=== PATIENT | male | born 1945 | race Caucasian/White ===

== ENCOUNTER → 2018-11-06 | Outpatient (CLI) | payer OTHER | END | disposition home or self-care (01) | LOC: RAD 13:46 | PROVIDERS: ATTEND Family Medicine | DX: Z01.810 Encounter for preprocedural cardiovascular examination (principal); Z01.811 Encounter for preprocedural respiratory examination; M17.11 Unilateral primary osteoarthritis, right knee | CPT/HCPCS: 71046; 93005 ==

== ENCOUNTER → 2018-12-03 | Outpatient (CLI) | payer OTHER ==
[~2018-12-03] MED LIST: ALLO300T PO; AMOX-291 PO; FURO-93 PO; LISI40TA PO; METF1000 PO; METO-93 PO; NIAC500T35 PO
[2018-12-03 15:26] LABS: BASOPHILS # (AUTO) 0.05 x10^3/uL (0-0.1); BASOPHILS % (AUTO) 1 % (0-1); EOSINOPHILS # (AUTO) 0.06 x10^3/uL (0-0.4); EOSINOPHILS % (AUTO) 1 % (1-7); LYMPHOCYTES # (AUTO) 1.66 x10^3/uL (1-3.4); LYMPHOCYTES % (AUTO) 17 % (22-44); MD NO; MEAN CORPUSCULAR HGB CONC 33.7 g/dL (33.2-36.2); MEAN CORPUSCULAR VOLUME 95.1 fL (81-97); MEAN PLATELET VOLUME 7.9 fL (7.4-10.4); MONOCYTES # (AUTO) 0.84 x10^3/uL (0.2-0.8); MONOCYTES % (AUTO) 9 % (2-9); NEUTROPHILS % (AUTO) 73 % (42-75); PLATELET COUNT 196 x10^3/uL (130-400); RED BLOOD COUNT 5.41 x10^6/uL (4.38-5.82); RED CELL DISTRIBUTION WIDTH 14.9 % (9.4-14.8)
[2018-12-03 15:34] LABS: ALANINE AMINOTRANSFERASE 30 U/L (12-78); ALBUMIN 3.9 g/dL (3.4-5.0); ANION GAP 5 mmol/L (5-15); CALCIUM 10.3 mg/dL (8.5-10.1); CHLORIDE 109 mmol/L (98-107)
[2018-12-03 15:37] LABS: ALKALINE PHOSPHATASE 99 U/L (45-117); BILIRUBIN,TOTAL 0.4 mg/dL (0.2-1.0); CREATININE 1.14 mg/dL (0.7-1.3); TOTAL PROTEIN 7.4 g/dL (6.4-8.2)
== END | disposition home or self-care (01) ==
LOC: STAR 13:50
PROVIDERS: ATTEND Orthopaedic Surgery
DX: M17.11 Unilateral primary osteoarthritis, right knee (principal)
CPT/HCPCS: 36415; 80053; 85025; 87081

== ENCOUNTER 2018-12-09 07:55 | Inpatient (IN) | payer MEDICARE, OTHER ==
[~2018-12-09] VITALS: Ht 185.4 cm; Wt 125.8 kg
[~2018-12-09 07:55] MED LIST changes: +EPINEPHRINE 1 MG/ML, 1ML ONE; +KETOROLAC 60 MG/2 ML ONE; +ROPIvacaine/PF 0.2%, 20 ML ONE; +SODIUM CHLORIDE 0.9% 50 ML ONE; +TRANEXAMIC ACID 100 MG/ML, 10ML ONE
[2018-12-09] MEDS ORDERED: LACTATED RINGERS 1,000 ML IV SCH (08:30)
[2018-12-09] MEDS ORDERED: VANCOMYCIN 2,000 MG in SODIUM CHLORIDE 0.9% 500 ML IV ONE (09:00)
[2018-12-09] MEDS ORDERED: VANCOMYCIN PER PHARMACY MC PRN (09:00)
[2018-12-09 09:06] VITALS: BP 147/80
[2018-12-09] MEDS ORDERED: ACETAMINOPHEN 500 MG TABLET PO ONE (09:30)
[2018-12-09] MEDS ORDERED: SCOPOLAMINE PATCH, 1.5MG PATCH.TD72 TD ONE (09:30)
[2018-12-09] MEDS ORDERED: GABAPENTIN 300 MG CAPSULE PO ONE (09:30)
[2018-12-09] MEDS ORDERED: FENTANYL PF 250 MCG/5ML ONE (09:50)
[2018-12-09] MEDS ORDERED: MIDAZOLAM 1 MG/ML, 2ML ONE (09:50)
[2018-12-09] MEDS ORDERED: PROPOFOL 10 MG/ML, 20ML ONE (09:51)
[2018-12-09] MEDS ORDERED: LIDOCAINE-MPF 2% ,5ML ONE (09:51)
[2018-12-09] MEDS ORDERED: WATER-INJECTION,STERILE 10 ML IV ONE (09:52)
[2018-12-09] MEDS ORDERED: CEFAZOLIN 1,000 MG ONE ×2 (09:52)
[2018-12-09] MEDS ORDERED: BUPIVACAINE/PF 0.25% ONE (09:53)
[2018-12-09] MEDS ORDERED: VANCOMYCIN 1,000 MG ONE (11:00)
[2018-12-09] MEDS ORDERED: PROPOFOL 50 ML ONE (11:03)
[2018-12-09] MEDS ORDERED: ROCURONIUM 10MG/ML,5ML ONE (11:07)
[2018-12-09] MEDS ORDERED: KETAMINE 100 MG/ML, 5ML ONE (11:07)
[2018-12-09] MEDS ORDERED: DEXAMETHASONE 4 MG/ML, 1ML ONE (11:07)
[2018-12-09] MEDS ORDERED: HYDROmorphone 2 MG/ML, 1ML IVPush PRN (12:00)
[2018-12-09] MEDS ORDERED: MEPERIDINE/PF 25MG/0.5ML IVPush PRN (12:00)
[2018-12-09] MEDS ORDERED: PROMETHAZINE 25 MG/ML, 1ML IV PRN (12:00)
[2018-12-09] MEDS ORDERED: HALOPERIDOL 5 MG/ML IV PRN (12:00)
[2018-12-09] MEDS ORDERED: hydrALAzine 20 MG/ML, 1ML IV PRN (12:00)
[2018-12-09] MEDS ORDERED: PROMETHAZINE 12.5 MG SUPP PR PRN (13:00)
[2018-12-09] MEDS ORDERED: ONDANSETRON 2MG/ML, 2ML IV PRN (13:00)
[2018-12-09] MEDS ORDERED: PROMETHAZINE 25 MG/ML, 1ML IM PRN (13:00)
[2018-12-09] MEDS ORDERED: DIPHENHYDRAMINE 50 MG CAPSULE PO PRN (13:00)
[2018-12-09] MEDS ORDERED: SENNA/DOCUSATE TABLET PO PRN (13:00)
[2018-12-09] MEDS ORDERED: ONDANSETRON 4 MG TABLET PO PRN (13:00)
[2018-12-09] MEDS ORDERED: MAGNESIUM HYDROXIDE 8%, 30ML UDC PO PRN (13:00)
[2018-12-09] MEDS ORDERED: ZOLPIDEM 5MG TABLET PO PRN (13:00)
[2018-12-09] MEDS ORDERED: HYDROmorphone 1 MG/ML, 1ML AMP IV PRN (13:00)
[2018-12-09] MEDS ORDERED: BISACODYL 10 MG SUPP PR PRN (13:00)
[2018-12-09] MEDS ORDERED: ALUMINUM/MAG/SIMETHICONE 30 ML UDC PO PRN (13:00)
[2018-12-09] MEDS ORDERED: OXYcodone 5 MG/5 ML ORAL.SOL UDC ONE (13:05)
[2018-12-09] MEDS ORDERED: FENTANYL PF 100 MCG/2ML ONE (13:05)
[2018-12-09] MEDS: OXYcodone 5 MG/5 ML ORAL.SOL UDC PO PRN ×2 (13:11→15:36)
[2018-12-09] MEDS ORDERED: TRANEXAMIC ACID 1,000 MG in SODIUM CHLORIDE 0.9% 100 ML IVPB ONE (13:15)
[2018-12-09] MEDS ORDERED: hydrALAzine 20 MG/ML, 1ML ONE (13:16)
[2018-12-09] MEDS: FENTANYL PF 100 MCG/2ML IV PRN ×3 (13:31→14:03)
[2018-12-09] MEDS ORDERED: ONDANSETRON 2MG/ML, 2ML ONE (13:34)
[2018-12-09] MEDS ORDERED: GLYCOPYRROLATE 0.4 MG/2 ML, 2ML ONE (13:38)
[2018-12-09] MEDS ORDERED: VANCOMYCIN PMX 1GM/200ML 200 ML IVPB ONE (15:00)
[2018-12-09] MEDS: SODIUM CHLORIDE 0.9% 1,000 ML IV SCH (15:35)
[2018-12-09] MEDS: ACETAMINOPHEN 650 MG/20.3 ML UDC PO SCH ×2 (15:35→19:40)
[2018-12-09] MEDS: TAMSULOSIN 0.4 MG CAP.ER.24H PO SCH (15:36)
[2018-12-09 18:30] VITALS: BP 119/61
[2018-12-09] MEDS: metFORMIN 500 MG TABLET PO SCH (19:41)
[2018-12-09] MEDS: DOCUSATE 100 MG CAPSULE PO SCH (19:42)
[2018-12-09] MEDS: LISINOPRIL 20 MG TABLET PO SCH (19:42)
[2018-12-09] MEDS: CEFAZOLIN PMX 2GM/50ML 50 ML IVPB SCH (19:43)
[2018-12-09] MEDS: DIAZEPAM 5 MG TABLET PO PRN (20:14)
[2018-12-09] MEDS ORDERED: METOPROLOL SUCCINATE 50 MG TAB.ER.24H PO SCH (21:00)
[2018-12-10 00:46] VITALS: BP 142/72
[2018-12-10] MEDS: DIAZEPAM 5 MG TABLET PO PRN ×3 (00:52→16:54)
[2018-12-10] MEDS: SODIUM CHLORIDE 0.9% 1,000 ML IV SCH ×2 (01:00→09:00)
[2018-12-10] MEDS: ACETAMINOPHEN 650 MG/20.3 ML UDC PO SCH ×3 (01:31→14:20)
[2018-12-10] MEDS: CEFAZOLIN PMX 2GM/50ML 50 ML IVPB SCH (02:37)
[2018-12-10 04:30] VITALS: BP 144/73
[2018-12-10] MEDS ORDERED: DEXAMETHASONE 4 MG/ML, 1ML IVPush SCH (06:00)
[2018-12-10] MEDS: RIVAROXABAN 10 MG TABLET PO SCH ×2 (06:34→09:00)
[2018-12-10 07:33] VITALS: BP 148/72
[2018-12-10] MEDS: metFORMIN 500 MG TABLET PO SCH (08:46)
[2018-12-10] MEDS: DOCUSATE 100 MG CAPSULE PO SCH (08:46)
[2018-12-10] MEDS: LISINOPRIL 20 MG TABLET PO SCH (08:48)
[2018-12-10] MEDS: TAMSULOSIN 0.4 MG CAP.ER.24H PO SCH (08:58)
[2018-12-10] MEDS ORDERED: NIACINAMIDE PO SCH (09:00)
[2018-12-10] MEDS ORDERED: ALLOPURINOL 300 MG TABLET PO SCH (09:00)
[2018-12-10] MEDS ORDERED: LISINOPRIL 20 MG TABLET PO SCH ×2 (09:00→21:00)
[2018-12-10] MEDS ORDERED: FUROSEMIDE 20 MG TABLET PO SCH (09:00)
[2018-12-10] MEDS ORDERED: MULTIVITAMINS/MINERALS TABLET PO SCH (09:00)
[2018-12-10] MEDS ORDERED: METOPROLOL SUCCINATE 50 MG TAB.ER.24H PO SCH (09:00)
[2018-12-10] MEDS ORDERED: AMOXICILLIN 500 MG CAPSULE PO SCH (09:30)
[2018-12-10] MEDS: OXYcodone IR 5MG TABLET PO PRN ×2 (10:48→16:54)
[2018-12-10 13:04] VITALS: BP 119/66
[2018-12-10] MEDS ORDERED: KETOROLAC 30 MG/1 ML IV SCH (15:00)
[2018-12-10] MEDS ORDERED: DIAZ5TAB PO (17:30)
[2018-12-10] MEDS ORDERED: OXYC5TAB3 PO (17:31)
== END 2018-12-10 19:17 | disposition home or self-care (01) | DRG 470 ==
LOC: OUT 07:55 → ORIP 12:54 → 4NOR 14:29
PROVIDERS: ADMIT Orthopaedic Surgery; ATTEND Orthopaedic Surgery
PROC: 3E0T3BZ Introduction of Anesthetic Agent into Peripheral Nerves and Plexi, Percutaneous Approach (ICD-10-PCS; 2018-12-09)
PROC: 0SRC0J9 Replacement of Right Knee Joint with Synthetic Substitute, Cemented, Open Approach (ICD-10-PCS; principal; 2018-12-09 11:00)
DX: M17.11 Unilateral primary osteoarthritis, right knee (principal); E11.9 Type 2 diabetes mellitus without complications; M21.161 Varus deformity, not elsewhere classified, right knee; M25.761 Osteophyte, right knee; Z86.73 Personal history of transient ischemic attack (TIA), and cerebral infarction without residual deficits; Z91.81 History of falling; Z79.84 Long term (current) use of oral hypoglycemic drugs
CPT/HCPCS: 36415; 82962; 85014; 85018; C1713; G0378; J0171; J0690; J1100; J1885; J2250; J2704; J2795; J3010; J3370; J3490; C1776; J0360; J7030; J7040; J7120

== ENCOUNTER 2019-02-26 07:38 | Outpatient (CLI) | payer MEDICARE, OTHER ==
[~2019-02-26 07:38] MED LIST changes: +DIAZ5TAB PO; -EPINEPHRINE 1 MG/ML, 1ML ONE; -KETOROLAC 60 MG/2 ML ONE; +OXYC5TAB3 PO; -ROPIvacaine/PF 0.2%, 20 ML ONE; -SODIUM CHLORIDE 0.9% 50 ML ONE; -TRANEXAMIC ACID 100 MG/ML, 10ML ONE
== END 2019-02-26 23:59 | disposition home or self-care (01) ==
LOC: CFH 07:38
PROVIDERS: ATTEND Internal Medicine Nephrology
DX: I12.9 Hypertensive chronic kidney disease with stage 1 through stage 4 chronic kidney disease, or unspecified chronic kidney disease (principal); N18.2 Chronic kidney disease, stage 2 (mild); E78.5 Hyperlipidemia, unspecified; E83.52 Hypercalcemia; R73.01 Impaired fasting glucose; R80.9 Proteinuria, unspecified
CPT/HCPCS: 76770; 78070; A9500

== ENCOUNTER → 2019-11-12 | Outpatient (CLI) | payer OTHER ==
[~2019-11-12] MED LIST changes: +AMLO10TA8 PO; +ERGO500017 PO; +METF500T17 PO; +MULT1TAB60 PO
[2019-11-12 14:13] LABS: MICROSCOPIC NOT IND
[2019-11-12 14:15] LABS: BASOPHILS # (AUTO) 0.03 x10^3/uL (0-0.1); BASOPHILS % (AUTO) 0 % (0-1); EOSINOPHILS # (AUTO) 0.25 x10^3/uL (0-0.4); EOSINOPHILS % (AUTO) 3 % (1-7); LYMPHOCYTES # (AUTO) 1.84 x10^3/uL (1-3.4); LYMPHOCYTES % (AUTO) 23 % (22-44); MD NO; MEAN CORPUSCULAR HEMOGLOBIN 31.5 pg (27.5-34.5); MEAN CORPUSCULAR HGB CONC 33.4 g/dL (33.2-36.2); MEAN CORPUSCULAR VOLUME 94.4 fL (81-97); MEAN PLATELET VOLUME 8.2 fL (7.4-10.4); MONOCYTES # (AUTO) 0.83 x10^3/uL (0.2-0.8); MONOCYTES % (AUTO) 10 % (2-9); NEUTROPHILS # (AUTO) 5.07 x10^3/uL (1.8-6.8); NEUTROPHILS % (AUTO) 63 % (42-75); PLATELET COUNT 201 x10^3/uL (130-400); RED BLOOD COUNT 5.28 x10^6/uL (4.38-5.82); RED CELL DISTRIBUTION WIDTH 14.5 % (9.4-14.8)
[2019-11-12 14:18] LABS: CULTURE INDICATED? NO
[2019-11-12 14:21] LABS: INTERNATIONAL NORMALIZED RATIO 0.94 (0.93-1.1)
[2019-11-12 14:22] LABS: CHLORIDE 108 mmol/L (98-107)
[2019-11-12 14:32] LABS: ALANINE AMINOTRANSFERASE 31 U/L (12-78); ALBUMIN 4.1 g/dL (3.4-5.0); ALKALINE PHOSPHATASE 120 U/L (45-117); ANION GAP 7 mmol/L (5-15); BILIRUBIN,TOTAL 0.5 mg/dL (0.2-1.0); CALCIUM 10.6 mg/dL (8.5-10.1); CREATININE 1.05 mg/dL (0.7-1.3); TOTAL PROTEIN 7.5 g/dL (6.4-8.2)
== END | disposition home or self-care (01) ==
LOC: STAR 13:17
PROVIDERS: ATTEND Neurological Surgery
DX: Z01.818 Encounter for other preprocedural examination (principal); G56.01 Carpal tunnel syndrome, right upper limb; M47.12 Other spondylosis with myelopathy, cervical region
CPT/HCPCS: 36415; 80053; 81003; 85025; 85610; 85730; 93005